=== PATIENT | male | born 1955 | race Hispanic/Latino ===

== ENCOUNTER 2017-06-15 08:38 | Day surgery (SDC) | payer OTHER ==
[2017-06-15] MEDS ORDERED: NACL 0.9% 500 ML 500 ML IV SCH (09:00)
[2017-06-15 09:31] LABS: Basophils % (Auto) 0.9 % (0.0-1.8); Eosinophils # (Auto) 0.2 K/mm3 (0.0-0.4); Eosinophils % (Auto) 3.1 % (0.0-4.3); Hematocrit 44.4 % (35.5-45.6); Hemoglobin 14.9 gm/dl (11.8-15.2); Lymphocytes # (Auto) 1.6 K/mm3 (1.2-5.4); Mean Corpuscular HGB Conc 34 % (32-34); Mean Corpuscular Hemoglobin 30 pg (28-32); Mean Corpuscular Volume 89 fl (84-94); Monocytes # (Auto) 0.6 K/mm3 (0.0-0.8); Monocytes % (Auto) 10.2 % (0.0-7.3); Platelet Count 132 K/mm3 (140-440); Red Blood Count 4.98 M/mm3 (3.65-5.03); Red Cell Distribution Width 13.7 % (13.2-15.2)
[2017-06-15 09:42] LABS: INR 0.94 (0.87-1.13)
[2017-06-15 10:25] LABS: BUN/Creatinine Ratio 17; Blood Urea Nitrogen 19 mg/dL (9-20); Calcium 8.6 mg/dL (8.4-10.2); Hemolysis Index 24
[2017-06-15] MEDS ORDERED: HEPARIN/NS 5000 UNIT/500ML(CATH LAB) 1,000 ML IR ONE (10:30)
[2017-06-15] MEDS ORDERED: XYLOCAINE 2% INFILTRATI ONE (10:31)
[2017-06-15] MEDS ORDERED: HEPARIN 10,000 UNITS/10 ML ONE (10:31)
[2017-06-15] MEDS ORDERED: CALAN ONE (10:31)
[2017-06-15] MEDS ORDERED: SUBLIMAZE ONE (10:32)
[2017-06-15] MEDS ORDERED: HEPARIN/NS 5000 UNIT/500ML(CATH LAB) 500 ML IR ONE (10:46)
[2017-06-15] MEDS: VERSED ONE ×2 (11:04→11:05)
--- NOTE | 2017-06-15 12:23 | Cardiac Catherization Report ---
INDICATION FOR PROCEDURE: The patient is a 61-year-old white gentleman with history of hypertension and severe aortic stenosis, was scheduled for cardiac catheterization for evaluation of the coronary arteries and aortic valve. The patient is being followed in the office and he has significant aortic stenosis noted on the echocardiogram with valve area of 0.75 square cm and normal LV function. The patient had catheterization done in 2010, which showed normal coronary anatomy. However, because of his severe aortic stenosis, he is scheduled for cardiac catheterization. The patient denies any chest pain or shortness of breath at this time. The patient was brought to the catheterization laboratory in a fasting condition. The patient was prepared with sterile drapes. After evaluating for sedation, the patient was sedated with IV Versed at 11:04 a.m. Subsequently, local anesthesia was given in the right wrist area and right radial artery puncture was made using 21-gauge arterial puncture needle. A 5-[place] Slender sheath was introduced. A 5-Ukrainian multipurpose catheter was used to obtain the angiograms of the right coronary artery. Subsequently required JL5 catheter to obtain the angiograms of the left coronary artery and subsequently left ventriculogram was performed using [place] catheter simultaneous pressures in the LV and aorta were obtained. Left ventriculogram was performed with an injection. At the end of the procedure, catheter and sheath were removed and good hemostasis was achieved with pressure bandage. The patient was monitored for sedation, ended 11:32 a.m. The patient tolerated the procedure well. No untoward complications were noted. Following findings were noted. HEMODYNAMICS: 1. Opening aortic pressure 149/86, left ventricular pressure of 196/43. Mean gradient across the aortic valve was 50.5 mmHg with peak gradient of 52 mmHg. Estimated ejection fraction 50%. Left ventriculogram was performed in RIVERA projection using hand injection. Only limited amount of dye is injected. Overall, left ventricular function appeared to be unremarkable in the normal range. However, would recommend confirmation with the echocardiogram. 2. Right coronary artery nondominant vessel, arises normally from right coronary cusp, angiographically smooth and normal. 3. Left coronary artery dominant vessel arises normally from left coronary cusp. Left main, LAD, which curves around the apex circumflex artery and its multiple branches. Circumflex artery and its branches are angiographically smooth and normal. LAD and its branches are normal. Aortic valve is heavily calcified with significant gradient across the aortic valve with mean gradient of 50.5 mmHg. FINAL IMPRESSION: Normal sized left ventricle with normal coronary anatomy. Severe aortic stenosis with calcified aortic valve. Procedure is uncomplicated. No untoward complications were noted. Would recommend aortic valve replacement. Discussed with Dr. Gabriela Gonsalez, his produce associate. JOB# [id number] NESHA/NABILA DURAN
[2017-06-15 13:27] VITALS: BP 130/84
--- NOTE | 2017-06-16 13:59 | Short Stay Summary ---
Short Stay Documentation Date of service: 06/15/17 - History H&P: obtained from office - Allergies and Medications Current Medications: Allergies No Known Allergies Allergy (Unverified 06/15/17 08:38) Home Medications Medication Instructions Recorded Confirmed Last Taken Type Aspirin [Lo-Dose Aspirin EC] 81 mg PO DAILY 06/15/17 06/15/17 06/15/17 07:00 History Carvedilol [Coreg] 25 mg PO BID 06/15/17 06/15/17 06/14/17 History Olmesartan (Nf) [Benicar (Nf)] 40 mg PO QDAY 06/15/17 06/15/17 06/15/17 07:00 History Rosuvastatin (Nf) [Crestor] 5 mg PO DAILY 06/15/17 06/15/17 06/15/17 07:00 History - Brief post op/procedure progress note Date of procedure: 06/15/17 Pre-op diagnosis: Post-op diagnosis: same Procedure: [facility] - see cath report Anesthesia: local Estimated blood loss: none Condition: stable - Disposition Condition at discharge: Good Disposition: [id number] TO HOME OR SELFCARE - Discharge Diagnoses (1) Aortic stenosis Status: Chronic (2) Normal coronary arteries Status: Chronic Short Stay Discharge Plan Activity: advance as tolerated Diet: regular Wound: open to air, keep clean and dry, per your surgeon's advice Follow up with: JOSEFA BLANTON MD [Primary Care Provider] - 7 Days LING SUMNER MD [Staff Physician] - 7 Days Forms: CardCath PCI D/C Instructions
== END 2017-06-15 13:45 | disposition home or self-care (01) ==
LOC: CATHLABREC 08:38
PROVIDERS: ATTEND Internal Medicine
DX: I35.0 Nonrheumatic aortic (valve) stenosis (principal); I10 Essential (primary) hypertension; Z79.01 Long term (current) use of anticoagulants
CPT/HCPCS: 36415; 80048; 85025; 85610; 85730; 93005; 93010; 93458; 99156; 99157; C1751; C1894; J1644; J2250; J3010; J7040; Q9967